=== PATIENT | female | born 1940 | race Caucasian/White ===

== ENCOUNTER 2017-07-21 21:37 | Emergency (ER) | payer MEDICARE, OTHER ==
[~2017-07-21] VITALS: Ht 167.6 cm; Wt 88.5 kg
[2017-07-21 22:23] VITALS: BP 167/67
[2017-07-21 23:26] LABS: Basophils # (auto) 0.1 uL; Basophils % (auto) 1.2 % (0.0-2.0); Eosinophils # (auto) 0.3 uL; Hematocrit 42.2 % (36.0-46.0); Hemoglobin 14.2 g/dL (12.2-16.2); Lymphocytes # (auto) 3.5 uL; Mean Corpuscular Hemoglobin 28.3 pg (28.0-32.0); Mean Corpuscular Hgb Conc. 33.8 g/dL (32.0-36.0); Mean Corpuscular Volume 83.8 fL (80.0-100.0); Monocytes # (auto) 0.8 uL; Monocytes % (auto) 10.1 % (0.0-12.0); Neutrophils # (auto) 3.8 uL; Neutrophils % (auto) 44.7 % (37.0-80.0); Nucleated Red Blood Cells % 0.1 %; Platelet Count (auto) 207 10^3/uL (140-450); Red Blood Cells 5.03 10^6/uL (4.0-5.20); Red Cell Distribution Width 13.8 % (11.8-14.3); White Blood Cell 8.4 10^3/uL (4.4-10.8)
[2017-07-21 23:46] LABS: Alanine Aminotransferase 32 U/L (13-56); Albumin 3.8 g/dL (3.4-5.0); Anion Gap 10 (5-15); Aspartate Aminotransferase 21 U/L (15-37); BUN/Creatinine Ratio 19.4; Blood Urea Nitrogen 19 mg/dL (7-18); Calcium 9.2 mg/dL (8.5-10.1); Carbon Dioxide 25 mmol/L (21-32); Chloride 102 mmol/L (98-107); GFR African American 71 mL/min; GFR Non-African American 59 mL/min; Glucose 131 mg/dL (74-106); Potassium 3.4 mmol/L (3.5-5.1); Sodium 137 mmol/L (136-145)
[2017-07-21 23:53] LABS: Alkaline Phosphatase 75 U/L (45-117); Bilirubin, Total 0.4 mg/dL (0.2-1.0); Magnesium 2.2 mg/dL (1.6-2.6); Total Protein 7.7 g/dL (6.4-8.2)
== END 2017-07-22 01:10 | disposition left against medical advice (07) ==
LOC: ER 21:37
DX: R07.9 Chest pain, unspecified (principal); Z53.21 Procedure and treatment not carried out due to patient leaving prior to being seen by health care provider
CPT/HCPCS: 36415; 71045; 80053; 83735; 84484; 85025; 93005

== ENCOUNTER 2023-10-13 23:48 | Emergency (ER) | payer MEDICARE, OTHER ==
[~2023-10-13] VITALS: Ht 167.6 cm; Wt 84.1 kg
[2023-10-14 00:15] VITALS: BP 160/53
[2023-10-14 00:24] VITALS: PULSE 79; RESP 20; O2SAT 94
== END 2023-10-14 00:31 | disposition home or self-care (01) ==
LOC: ER 23:48
DX: T16.2XXA Foreign body in left ear, initial encounter (principal); Z88.6 Allergy status to analgesic agent; W44.8XXA Other foreign body entering into or through a natural orifice, initial encounter; Y93.89 Activity, other specified; Y92.89 Other specified places as the place of occurrence of the external cause; Y99.8 Other external cause status
CPT/HCPCS: 69200